=== PATIENT | male | born 1985 | race Caucasian/White ===

== ENCOUNTER 2020-01-03 09:55 | Emergency (ER) | payer OTHER ==
[~2020-01-03] VITALS: Ht 182.9 cm; Wt 145.5 kg
[2020-01-03 10:08] VITALS: Ht 182.9 cm; Wt 145.5 kg
[2020-01-03] MEDS ORDERED: KEFLEX500 MG PO (11:08)
[2020-01-03] MEDS ORDERED: NAPROSYN500 MG PO (11:08)
[2020-01-03 11:30] VITALS: BP 149/86
== END 2020-01-03 11:31 | disposition home or self-care (01) ==
LOC: D.ER 09:55
DX: S61.512A Laceration without foreign body of left wrist, initial encounter (principal); W45.8XXA Other foreign body or object entering through skin, initial encounter; Y93.9 Activity, unspecified; Y92.9 Unspecified place or not applicable